=== PATIENT | female | born 1995 | race Caucasian/White ===

== ENCOUNTER 2018-05-21 15:50 | Emergency (ER) | payer OTHER ==
[~2018-05-21] VITALS: Ht 167.6 cm; Wt 74.8 kg
[2018-05-21 16:11] VITALS: BP 128/77
--- NOTE | 2018-05-21 16:15 | NUR ---
PT AMBULATED TO ER BED 08
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
--- NOTE | 2018-05-21 16:39 | NUR ---
PT TAKEN TO RADIOLOGY
--- NOTE | 2018-05-21 16:56 | NUR ---
PT RETURNED FROM RADIOLOGY
[2018-05-21] MEDS ORDERED: MORPHINE SULFATE 4 MG/ML SYR IM ONE (18:20)
[2018-05-21] MEDS ORDERED: DIAZEPAM 5 MG TAB PO ONE (18:20)
[2018-05-21 19:03] VITALS: BP 128/77
--- NOTE | 2018-05-21 19:06 | NUR ---
Patient discharged with v/s stable. Written and verbal after care instructions given and explained. Patient alert, oriented and verbalized understanding of instructions. Ambulatory with steady gait. All questions addressed prior to discharge. ID band removed. Patient advised to follow up with PMD. Rx of MOTRIN, VALIUM, NORCO given. Patient educated on indication of medication including possible reaction and side effects. Opportunity to ask questions provided and answered.
== END 2018-05-21 19:06 | disposition home or self-care (01) ==
LOC: MED 15:50
DX: G89.29 Other chronic pain (principal); M54.5 Low back pain; Z88.8 Allergy status to other drugs, medicaments and biological substances
CPT/HCPCS: 72110; 81002; 81025; 96372; 99284; J2270

== ENCOUNTER 2018-05-26 17:14 | Emergency (ER) | payer OTHER ==
[~2018-05-26] VITALS: Ht 167.6 cm; Wt 75.5 kg
[2018-05-26 17:49] VITALS: BP 122/74
--- NOTE | 2018-05-26 18:52 | NUR ---
PT UPDATED ABOUT BED AVAILABILITY SITUATION
--- NOTE | 2018-05-26 19:25 | NUR ---
PT C/P BILATERAL LEG PAIN. PT SEEN ON 05/21 HERE IN ED WITH SAME COMPLAINT. PT GIVEN RX OF NORCO. PT STATES SHE TOOK PRESCRIBED DOSE AND MORE BECAUSE PAIN WAS SO BAD. PT ALSO STATED SHE WAS ANXIOUS. PT STATED SHE DOES HAVE APPT WITH PMD BUT NOT YET. PT AAOX4. HR EVEN AND REGULAR. NO C/O NVD. LUNGS SOUNDS CLEAR.
--- NOTE | 2018-05-26 19:46 | NUR ---
Note [email or web address] in EDM - 05/26/18 at 1949 by KATI Patient discharged with v/s stable. Written and verbal after care instructions given and explained. Patient alert, oriented and verbalized understanding of instructions. Ambulatory with steady gait. All questions addressed prior to discharge. ID band removed. Patient advised to follow up with PMD. Rx of ROBAXIN 500MG, MEDROL 4MG, TRAMADOL 50MG, given. Patient educated on indication of medication including possible reaction and side effects. Opportunity to ask questions provided and answered.
[2018-05-26] MEDS ORDERED: MORPHINE SULFATE 2 MG/ML SYR IM ONE (21:25)
[2018-05-26 22:10] VITALS: BP 107/58
--- NOTE | 2018-05-26 22:12 | NUR ---
Patient discharged with v/s stable. Written and verbal after care instructions given and explained. Patient verbalized understanding. Ambulatory with steady gait. All questions addressed prior to discharge. PT REFUSED RX OF TRAMADOL AND MOTRIN. PT GIVEN IM MORPHINE. Advised to follow up with PMD AND PAIN MGMT.
== END 2018-05-26 22:05 | disposition home or self-care (01) ==
LOC: MED 17:14
DX: M54.42 Lumbago with sciatica, left side (principal); M54.41 Lumbago with sciatica, right side; Z88.6 Allergy status to analgesic agent
CPT/HCPCS: 81002; 81025; 96372; 99283; J2270